=== PATIENT | female | born 1980 | race Caucasian/White ===

== ENCOUNTER 2020-09-15 07:11 | Day surgery (SDC) | payer SELFPAY ==
[2020-09-15 07:30] VITALS: BMI 25.8
== END 2020-09-15 10:10 | disposition home or self-care (01) ==
LOC: CSHLD/OP 07:11
PROVIDERS: ATTEND Obstetrics & Gynecology
DX: O36.8190 Decreased fetal movements, unspecified trimester, not applicable or unspecified (principal); O09.529 Supervision of elderly multigravida, unspecified trimester; Z3A.00 Weeks of gestation of pregnancy not specified
CPT/HCPCS: 99282

== ENCOUNTER 2020-10-10 21:21 | Inpatient (IN) | payer SELFPAY ==
[2020-10-10 21:56] VITALS: BMI 25.8
[2020-10-10] MEDS ORDERED: hydrALAZINE 20 MG/ML VIAL SLOW IVP PRN (22:37)
[2020-10-10 22:48] LABS: Amnisure Test RUPTURE DETECTED (No Rupture)
[2020-10-10] MEDS ORDERED: Misoprostol 200 MCG TAB PR PRN (23:20)
[2020-10-10] MEDS ORDERED: Acetaminophen 500 MG TAB PO PRN (23:20)
[2020-10-10] MEDS ORDERED: Promethazine HCl 25 MG/ML VIAL IM PRN (23:20)
[2020-10-10] MEDS ORDERED: Ibuprofen 800 MG TAB PO PRN (23:20)
[2020-10-10] MEDS ORDERED: Lidocaine 1% (PF) 30 ML VIAL SC PRN (23:20)
[2020-10-10] MEDS ORDERED: Ondansetron PF 4 MG/2 ML Vial IVP PRN (23:20)
[2020-10-10] MEDS ORDERED: Butorphanol Tartrate 1 MG/ML VIAL SLOW IVP PRN (23:20)
[2020-10-10] MEDS ORDERED: NS w/ Oxytocin 30 units 500 ML IV PRN (23:42)
[2020-10-10 23:59] LABS: Hemoglobin 11.2 g/dL (12.0-15.5); Mean Corpuscular Hemoglobin 28.9 pg (27.0-33.0); Mean Platelet Volume 11.7 fl (7.4-10.4); Platelet Count 154 10x3/uL (150-450); RBC Distribution Width 14.1 % (11.5-14.5); Red Blood Cell (RBC) Count 3.87 10x6/uL (3.90-5.03); White Blood Cell (WBC) Count 9.3 10x3/uL (3.5-10.5)
[2020-10-11] MEDS ORDERED: Fentanyl 4 mcg/Bup 0.1% Cadd 100 ML ONE ×2 (00:08→07:32)
[2020-10-11 00:22] LABS: Hep B Surf Ag Non-Reactive S/CO (NonReactive)
[2020-10-11 00:23] LABS: Syphilis Antibody Nonreactive (Nonreactive); Syphilis Antibody Index 0.03 S/CO (<1.00 Non-Reactive)
[2020-10-11 00:38] LABS: HBSAg Index 0.14 S/CO (0-0.99)
[2020-10-11] MEDS ORDERED: NS w/ Oxytocin 30 units 500 ML IV SCH ×3 (05:30→11:00)
[2020-10-11] MEDS: Lactated Ringer's 1,000 ML IV SCH ×2 (07:36→07:37)
[2020-10-11] MEDS ORDERED: ePHEDrine Sulfate 50 MG/10 ML VIAL ONE (08:00)
[2020-10-11] MEDS ORDERED: Bupivacaine 0.25% HCL 30 ML VIAL ONE (08:00)
[2020-10-11] MEDS ORDERED: Carboprost 250 MCG/ML AMP ONE (08:04)
[2020-10-11] MEDS ORDERED: hydrALAZINE 20 MG/ML VIAL SLOW IVP PRN ×2 (10:31→10:32)
[2020-10-11] MEDS ORDERED: Acetaminophen/Codeine 30-300mg Tablet PO PRN (10:31)
[2020-10-11] MEDS ORDERED: Zolpidem Tartrate 5 MG TAB PO PRN (10:32)
[2020-10-11] MEDS ORDERED: Ondansetron PF 4 MG/2 ML Vial IVP PRN ×2 (10:32→10:57)
[2020-10-11] MEDS ORDERED: diphenhydrAMINE 50 MG/ML VIAL IVP PRN (10:57)
[2020-10-11] MEDS ORDERED: Acetaminophen 325 MG TAB PO PRN (10:57)
[2020-10-11] MEDS ORDERED: Promethazine HCl 25 MG/ML VIAL IM PRN (10:57)
[2020-10-11] MEDS ORDERED: Lactated Ringer's 500 ML IV PRN (10:57)
[2020-10-11] MEDS ORDERED: Naloxone HCl 0.4 mg/ml Vial IVP PRN ×2 (10:57)
[2020-10-11] MEDS ORDERED: Misoprostol 200 MCG TAB RC SCH (11:00)
[2020-10-11] MEDS ORDERED: Fentanyl 4 mcg/Bupivacaine 0.1% Cassette 100 ML EPIDURAL SCH (11:00)
[2020-10-11] MEDS ORDERED: Communication Order-Pharmacy FS SCH (11:00)
[2020-10-11] MEDS ORDERED: ePHEDrine Sulfate 50 MG/10 ML VIAL SLOW IVP PRN (12:14)
[2020-10-11] MEDS ORDERED: Hydrocerin (Eucerin) Cream 120 gm Jar TOP PRN (12:14)
[2020-10-11] MEDS: Ibuprofen 800 MG TAB PO SCH ×2 (13:56→21:15)
[2020-10-11 19:13] LABS: Hemoglobin 10.7 g/dL (12.0-15.5); Mean Corpuscular HGB CONC 34.2 g/dL (32.0-36.0); Mean Corpuscular Hemoglobin 29.6 pg (27.0-33.0); Mean Corpuscular Volume 86.7 fl (81.6-98.3); Mean Platelet Volume 12.1 fl (7.4-10.4); Platelet Count 142 10x3/uL (150-450); Red Blood Cell (RBC) Count 3.61 10x6/uL (3.90-5.03); White Blood Cell (WBC) Count 13.6 10x3/uL (3.5-10.5)
[2020-10-11] MEDS ORDERED: Docusate Calcium (SURFAK) 240 MG CAP PO SCH (21:00)
[2020-10-11] MEDS: Docusate Calcium (SURFAK) 240 MG CAP PO SCH (21:15)
[2020-10-12] MEDS: Ibuprofen 800 MG TAB PO SCH (06:35)
[2020-10-12 07:55] VITALS: BP 100/64; TEMP 98.1
[2020-10-12] MEDS: Docusate Calcium (SURFAK) 240 MG CAP PO SCH (08:48)
== END 2020-10-12 13:00 | disposition home or self-care (01) | DRG 807 ==
LOC: CSHLD/OP 21:21 → CSHERS 21:21 → CSHLD 10-11 05:28 → CSHPP 10-11 13:19
PROVIDERS: ADMIT Obstetrics & Gynecology; ATTEND Obstetrics & Gynecology
PROC: 10E0XZZ Delivery of Products of Conception, External Approach (ICD-10-PCS; principal; 2020-10-11)
PROC: 4A0HXCZ Measurement of Products of Conception, Cardiac Rate, External Approach (ICD-10-PCS; 2020-10-11)
PROC: 0UQMXZZ Repair Vulva, External Approach (ICD-10-PCS; 2020-10-11)
DX: O43.893 Other placental disorders, third trimester (principal); Z37.0 Single live birth; O70.0 First degree perineal laceration during delivery; Z3A.39 39 weeks gestation of pregnancy
CPT/HCPCS: 36415; 51702; 84112; 85027; 86780; 86850; 86900; 86901; 87340; 88307; 99285; J2590; S0020